=== PATIENT | female | born 1985 | race Caucasian/White ===

== ENCOUNTER → 2016-06-21 | Outpatient (CLI) | payer BC | END | disposition home or self-care (01) | LOC: C.PAPS 10:48 | PROVIDERS: ATTEND Obstetrics & Gynecology | DX: Z01.419 Encounter for gynecological examination (general) (routine) without abnormal findings (principal) ==

== ENCOUNTER → 2017-06-26 | Outpatient (CLI) | payer BC | END | disposition home or self-care (01) | LOC: C.PAPS 09:14 | PROVIDERS: ATTEND Obstetrics & Gynecology | DX: Z01.419 Encounter for gynecological examination (general) (routine) without abnormal findings (principal) ==

== ENCOUNTER 2022-05-08 00:34 | Inpatient (IN) ==
--- NOTE | 2022-05-08 01:19 | History & Physical Report ---
Date of Service May 08, 2022 Assessment & Plan (1) 40 weeks gestation of : (2) PROM with onset of labor within 24 hours of rupture: (3) Need for MMR vaccine: Plan Admit, iv, labs. fhts categ 1. epidural when desires, reviewed possible need for pit. will need mmr pp. pt agreeable. given bps, will check lfts and creat. monitor. History of Present Illness Chief Complaint: leaking fluid Primary Care Provider: Keisha Rosas 36yo at 40+wks ega with prom clear fluid and onset on ctx. On arrival to L&D gross srom noted and cx 2cm /80% per nurse. Patient with painful ctx, requests epidural. No vb. No aviles or visual change. No ruq pain. PNC c/b 1. ama 2. needs mmr pp PNL rhpos, ri, gbs neg OBH: g1 GYNH: nl paps, no stds Allergies Allergy/AdvReac Type Severity Reaction Status Date / Time Penicillins Allergy Severe Anaphylaxis Verified 05/03/22 15:01 Home Medications Medication Instructions Recorded Confirmed Type Saccharomyces boulardii 250 mg 250 mg PO DAILY 06/16/19 05/08/22 History capsule fluticasone propionate 50 1 sprays intranasal DAILY 06/16/19 05/08/22 History mcg/actuation nasal spray,suspension montelukast 10 mg tablet 10 mg PO DAILY 06/16/19 05/08/22 History budesonide 180 mcg/actuation 1 inh inhalation DAILY 08/20/20 05/08/22 History breath activated powder inhaler (Pulmicort Flexhaler) albuterol sulfate PO PRN 10/03/21 05/03/22 History calcium carbonate [Calcium 600] PO 10/03/21 05/03/22 History cetirizine [Zyrtec] PO 10/03/21 05/03/22 History elderberry fruit PO 10/03/21 05/03/22 History ipratropium bromide [Atrovent HFA] inhalation 10/03/21 05/03/22 History ketotifen fumarate [Zaditor] ophthalmic (eye) 10/03/21 05/03/22 History lifitegrast [Xiidra] ophthalmic (eye) 10/03/21 05/03/22 History prenat.vits,filemon,[id number] 1 tab PO DAILY 10/03/21 05/08/22 History doxylamine succinate [Unisom PO 02/10/22 05/03/22 History (doxylamine)] famotidine [Pepcid] PO 02/10/22 05/03/22 History loperamide [Imodium] PO 02/10/22 05/03/22 History hydrocortisone 2.5 % topical 1 applic topical BID #28.35 grams 02/17/22 05/08/22 Rx ointment doxylamine 20 mg-pyridoxine 20 mg 1 tab PO BID #60 tabs 03/13/22 05/08/22 Rx tablet,immediate and delayed release (Bonjesta) albuterol sulfate 0.63 mg/3 mL 0.63 mg inhalation Q4H PRN Wheezing 05/08/22 05/08/22 History solution for nebulization Patient History Medical History Asthma History of chicken pox IBS (irritable bowel syndrome) Surgical History H/O colonoscopy H/O laparoscopy H/O wisdom tooth extraction S/P LASIK surgery Family History Grandmother (Maternal) Diabetes Mother Asthma Thyroid disease Vulvodynia Denies family history of Ovarian cancer Breast cancer Colorectal cancer Social History Smoking Status: Never smoker Hx Alcohol Use: No Hx Substance Use: No Preferred Language: Armenian Coffee Farmer Required: No Beliefs That Will Affect Care: None marital status: marital status details: Blake Alfaro (38) [phone] Current Living Situation: Spouse Current Living Situation Comment: lives with spouse, dogs current occupational status: employed current occupation: [employer] Professional Other Information That Helps Us Care for You: No Feels Safe at Home: Yes Safety Concerns: Feels Safe At This Time Dental Care, Regularly: Yes Physical Activity Frequency Comment: Exerciese regularly. Seatbelt Use: always Sunscreen Use: Yes Assistive Devices: None Review of Systems as per Subjective / HPI Physical Exam Constitutional: WD/WN, vitals as above Respiratory: normal respiratory effort, lungs clear to auscultation Cardiovascular: Rate/Rhythm: regular rate and regular rhythm Gastrointestinal (Abdomen): soft gravid nt efw 7-8# Musculoskeletal: no edema nontender calves Neurologic: grossly normal Psychiatric: A+Ox3, euthymic affect Genitourinary: Manual OB Exam: + cervical dilation 2 cm and + cervical effacement (per nurse) 80% OB Exam Monitor Tracing: + external FHT monitor used, + external uterine monitor used (q2-3), + category I and + normal FHT variability Gross srom Results & Data ([facility]) Vital Signs (Past 12 Hours) Vital Signs Temp Pulse Resp BP 05/08/22 00:55 98.2 F 92 H 18 157/94 H 05/08/22 01:12 91 H 129/84 05/08/22 01:04 91 H 155/86 H 05/08/22 01:01 86 176/83 H 05/08/22 00:49 98.2 F 92 H 18 157/94 H Coding Level of Care Code None Diagnoses 40 weeks gestation of Z3A.40 PROM with onset of labor within 24 hours of rupture O42.00 Need for MMR vaccine Z23
[2022-05-08] MEDS ORDERED: OXYTOCIN 30 UNITS/500 ML BAG IV PRN ×3 (01:22→20:38)
[2022-05-08] MEDS ORDERED: LIDOCAINE 1% LOCAL 20 ML VIAL INFIL PRN (01:22)
[2022-05-08] MEDS: LACTATED RINGER'S 1,000 ML IV PRN ×6 (01:40→22:31)
[2022-05-08] MEDS ORDERED: ePHEDrine sulfate 50 MG/ML AMP ONE (01:46)
[2022-05-08] MEDS ORDERED: BUPIVACAINE 0.25% 30 ML VIAL ONE (01:47)
[2022-05-08] MEDS ORDERED: fentaNYL 2MCG/ML ROPIVACAINE 1.25MG/ML 100 ML BAG EPI ONE (01:47)
[2022-05-08] MEDS ORDERED: SODIUM CHLORIDE 0.9% INJ 10 ML VIAL ONE (01:47)
[2022-05-08] MEDS ORDERED: fentaNYL citrate 100 MCG/2 ML VIAL ONE (01:47)
[2022-05-08] MEDS ORDERED: LIDOCAINE 2%/EPINEPHRINE 1:200,000 20 ML SDV ONE (01:47)
[2022-05-08 01:58] LABS: Hematocrit (blood only) 34.7 % (37.0-47.0); Hemoglobin 11.7 g/dl (12.0-16.0); Mean Corpuscular Hemoglobin 28.6 pg (25.0-34.0); Mean Corpuscular Hgb Conc 33.7 g/dL (32.0-36.0); Mean Corpuscular Volume 84.8 fL (80.0-100.0); Platelet Count 249 K/uL (130-400); RDW Coefficient of Variation 15.5 % (11.5-14.5); RDW Standard Deviation 47.5 fL (36.4-46.3); Red Blood Count 4.09 M/uL (4.20-5.40); White Blood Count 14.33 K/ul (4.8-10.8)
[2022-05-08 02:07] LABS: Albumin Globulin Ratio 1.1 (0.9-2); Albumin Level 3.4 gm/dl (3.4-5.0); BUN Creatinine Ratio 12.8 (10-20); Bilirubin,Total 0.3 mg/dl (0.2-1.0); Calcium 9.7 mg/dl (8.5-10.1); Creatinine Clr Calc Pharmacy 130.9 ml/min; Est GFR (African American) 113.4 ml/min; Est GFR (Non-African American) 97.8 ml/min; Potassium 4.1 mmol/L (3.5-5.1); Total Protein 6.4 gm/dl (6.0-8.3)
[2022-05-08] MEDS ORDERED: ePHEDrine sulfate 50 MG/ML AMP IV PRN (02:33)
[2022-05-08] MEDS ORDERED: NALOXONE HCL 1 MG in SODIUM CHLORIDE 0.9% 1000ML 1,000 ML IV PRN (02:33)
[2022-05-08] MEDS ORDERED: NALOXONE HCL 0.4 MG/1 ML VIAL/CARP IV PRN (02:33)
[2022-05-08] MEDS ORDERED: diphenhydrAMINE 50 MG/ML VIAL IV PRN (02:33)
[2022-05-08] MEDS ORDERED: NALBUPHINE HCL INJ 10 MG/ML AMP IV PRN (02:33)
--- NOTE | 2022-05-08 02:33 | Anesthesiology Consultation ---
Date of Service May 08, 2022 Assessment & Plan ASA ASA2 Proposed Anesthesia Anesthesia Type: Labor Epidural Risk / Benefits Reviewed With: PT / POA / Parent / Guardian, Accepts Plan and Informed Consent Obtained History Height/Weight Height: 5 ft 8 in Weight: 112.037 kg Allergies Allergy/AdvReac Type Severity Reaction Status Date / Time Penicillins Allergy Severe Anaphylaxis Verified 05/03/22 15:01 Medications Home Medications Medication Instructions Recorded Confirmed Last Taken Saccharomyces boulardii 250 mg 250 mg PO DAILY 06/16/19 05/08/22 05/07/22 capsule fluticasone propionate 50 1 sprays intranasal DAILY 06/16/19 05/08/22 05/07/22 mcg/actuation nasal spray,suspension montelukast 10 mg tablet 10 mg PO DAILY 06/16/19 05/08/22 05/07/22 budesonide 180 mcg/actuation 1 inh inhalation DAILY 08/20/20 05/08/22 Unknown breath activated powder inhaler (Pulmicort Flexhaler) prenat.vits,filemon,[id number] 1 tab PO DAILY 10/03/21 05/08/22 05/07/22 hydrocortisone 2.5 % topical 1 applic topical BID #28.35 grams 02/17/22 05/08/22 05/07/22 ointment doxylamine 20 mg-pyridoxine 20 mg 1 tab PO BID #60 tabs 03/13/22 05/08/22 05/07/22 tablet,immediate and delayed release (Bonjesta) albuterol sulfate 0.63 mg/3 mL 0.63 mg inhalation Q4H PRN Wheezing 05/08/22 05/08/22 05/07/22 solution for nebulization cetirizine 10 mg tablet (Zyrtec) 10 mg PO DAILY 05/08/22 05/08/22 05/07/22 doxylamine succinate 25 mg tablet 25 mg PO HS PRN Sleep 05/08/22 05/08/22 05/07/22 famotidine 40 mg tablet (Pepcid) 40 mg PO DAILY 05/08/22 05/08/22 05/07/22 ipratropium bromide 17 1 puff inhalation QID PRN Wheezing 05/08/22 05/08/22 Unknown mcg/actuation HFA aerosol inhaler ketotifen fumarate 0.025 % (0.035 1 drp ophthalmic (eye) BID PRN 05/08/22 Unknown %) eye drops Itching lifitegrast 5 % eye drops in a 1 drp ophthalmic (eye) PRN Itching 05/08/22 Unknown dropperette loperamide 2 mg capsule 2 mg PO PRN Diarrhea 05/08/22 05/07/22 Active Medications Generic Name Dose Route Start Last Admin Trade Name Freq PRN Reason Stop Dose Admin Lactated Ringer's 1,000 mls @ 125 mls/hr 05/08/22 01:22 05/08/22 02:46 Lr IV 05/10/22 01:21 125 mls/hr .Q8H PRN Administration L&D Protocol Protocol Past Medical History Medical History Asthma History of chicken pox IBS (irritable bowel syndrome) Exercise / Class Metabolic Activity II 4-5 Yardwork/Stairs/Walk up hill Past Family History Family History Grandmother (Maternal) Diabetes Mother Asthma Thyroid disease Vulvodynia Denies family history of Ovarian cancer Breast cancer Colorectal cancer Past Surgical History Surgical History H/O colonoscopy H/O laparoscopy H/O wisdom tooth extraction S/P LASIK surgery Past Anesthesia History No Hx of Anesthesia Complications and No Family Hx of Anesthesia Complications History of PONV No Hx of PONV and No Hx of Motion Sickness Social History Smoking Status: Never smoker Hx Alcohol Use: No Hx Substance Use: No substance use type: does not use Review of Systems denies fever/cough/ colds/ chest pain/ SOB/ EDUARDO denies EDUARDO Physical Exam Vital Signs Last Vital Signs Temp 36.8 C 05/08/22 00:55 Pulse 85 05/08/22 03:04 Resp 18 05/08/22 00:55 BP 144/73 H 05/08/22 03:04 Pulse Ox 99 05/08/22 03:03 ENMT Mouth: no TMJ abnormality and no dentition abnormality Thyromental Distance: > or= 3.5 Finger Breadths Mallampati Class: II Neck neck extension not limited Respiratory normal respiratory effort; no respiratory distress Auscultation: lungs clear to auscultation bilaterally Cardiovascular Rate/Rhythm: regular rate and regular rhythm Neurologic moves all extremities Psychiatric Orientation: alert and oriented x 3 Testing Laboratory Results 05/08/22 01:33 05/08/22 01:33 Blood Type O Positive 05/08/22 01:33 Antibody Screen NEGATIVE 05/08/22 01:33
[2022-05-08] MEDS: ONDANSETRON INJ 2 MG/ML 2 ML VIAL IV PRN ×2 (03:21→13:31)
--- NOTE | 2022-05-08 07:33 | Labor Progress Brief Note ---
Date of Service May 08, 2022 Subjective pt feeling some pressure. Assessment & Plan (1) 40 weeks gestation of : (2) PROM with onset of labor within 24 hours of rupture: Plan will likely begin 2nd stage soon. just saw pt temp. will d/w oncoming provider, may have to trt as presumed chorio. no maternal or tachycardia noted. or new tenderness although pt with epidural. Admission and Anticipated Discharge Date Admission Date: May 08, 2022 Physical Exam Constitutional: WD/WN, vitals as above Genitourinary: Manual OB Exam: + cervical dilation (rim), + cervical effacement 100% and + station 0 OB Exam Monitor Tracing: + external FHT monitor used, + external uterine monitor used (q2), + category I and + normal FHT variability Results & Data ([facility]) Vital Signs (Past 12 Hours) Vital Signs Temp Pulse Resp BP Pulse Ox 05/08/22 00:55 98.2 F 92 H 18 157/94 H 05/08/22 07:28 94 H 99 05/08/22 07:23 97 H 99 05/08/22 07:19 90 138/76 05/08/22 07:01 16 05/08/22 07:01 100.8 F H 16 05/08/22 07:17 84 98 05/08/22 07:13 90 99 05/08/22 07:08 83 99 05/08/22 07:05 93 H 139/84 05/08/22 07:03 90 100 05/08/22 06:58 89 99 05/08/22 06:52 87 98 05/08/22 06:50 85 134/72 05/08/22 06:48 92 H 99 05/08/22 06:43 84 98 05/08/22 06:38 84 100 05/08/22 06:35 82 120/78 05/08/22 06:33 86 98 05/08/22 06:28 83 99 05/08/22 06:23 86 99 05/08/22 06:20 83 135/78 05/08/22 06:18 85 99 05/08/22 06:13 83 98 05/08/22 06:08 85 98 05/08/22 06:05 81 135/75 05/08/22 06:03 88 97 05/08/22 05:58 81 99 05/08/22 05:53 85 05/08/22 05:53 88 147/76 H 100 05/08/22 05:51 83 133/100 05/08/22 05:48 82 97 05/08/22 05:43 84 99 05/08/22 05:38 84 100 05/08/22 05:34 76 139/70 05/08/22 05:33 82 99 05/08/22 05:28 90 99 05/08/22 05:10 98.6 F 05/08/22 05:23 108 H 99 05/08/22 05:21 88 124/81 05/08/22 05:18 78 99 05/08/22 05:13 97 H 97 05/08/22 05:08 88 98 05/08/22 05:05 80 145/74 H 05/08/22 05:03 85 98 05/08/22 04:58 94 H 98 05/08/22 04:53 82 97 05/08/22 04:49 87 140/71 05/08/22 04:48 84 98 05/08/22 04:43 108 H 99 05/08/22 04:38 78 98 05/08/22 04:35 85 146/82 H 05/08/22 04:33 83 98 05/08/22 04:28 98 H 98 05/08/22 04:23 80 100 05/08/22 04:20 77 144/77 H 05/08/22 04:18 75 98 05/08/22 04:13 117 H 98 05/08/22 04:08 79 98 05/08/22 04:05 78 141/72 H 05/08/22 04:03 78 98 05/08/22 03:58 93 H 98 05/08/22 03:53 75 100 05/08/22 03:49 80 142/73 H 05/08/22 03:48 91 H 99 05/08/22 03:43 80 98 05/08/22 03:38 80 99 05/08/22 03:34 90 133/81 05/08/22 03:33 83 99 05/08/22 03:28 78 97 05/08/22 03:05 97.5 F L 05/08/22 03:23 84 99 05/08/22 03:18 89 99 05/08/22 03:17 82 138/74 05/08/22 03:13 82 99 05/08/22 03:11 90 135/73 05/08/22 03:08 92 H 99 05/08/22 03:04 85 144/73 H 05/08/22 03:03 87 99 05/08/22 03:02 84 130/68 05/08/22 03:00 78 143/74 H 05/08/22 02:58 75 05/08/22 02:58 79 142/76 H 96 05/08/22 02:56 75 142/74 H 05/08/22 02:53 103 H 100 05/08/22 02:48 109 H 99 05/08/22 01:31 97 H 139/81 05/08/22 01:22 100 H 140/84 05/08/22 01:12 91 H 129/84 05/08/22 01:04 91 H 155/86 H 05/08/22 01:01 86 176/83 H 05/08/22 00:49 98.2 F 92 H 18 157/94 H Coding Level of Care Code None Diagnoses 40 weeks gestation of Z3A.40 PROM with onset of labor within 24 hours of rupture O42.00
--- NOTE | 2022-05-08 09:17 | Labor Progress Brief Note ---
Date of Service May 08, 2022 Subjective Reason For Note: Routine Evaluation contractions every 5 minutes. recently straight cathed for only 10cc's urine. IV bolus initiated as a result and now ctns are spaced out. FHT tracing category 1 cervix exam- lip on right side of cervix still present. vertex still at - 2station will start augmentation of her contractions to get back to an adequate pattern. Assessment & Plan Admission and Anticipated Discharge Date Admission Date: May 08, 2022 Results & Data ([facility]) Vital Signs (Past 12 Hours) Vital Signs Temp Pulse Resp BP Pulse Ox 05/08/22 00:55 98.2 F 92 H 18 157/94 H 05/08/22 09:13 86 98 05/08/22 09:08 88 99 05/08/22 09:05 86 160/78 H 05/08/22 09:03 91 H 99 05/08/22 08:58 95 H 100 05/08/22 08:53 86 100 05/08/22 08:49 88 144/81 H 05/08/22 08:48 90 99 05/08/22 08:43 92 H 98 05/08/22 08:38 87 99 05/08/22 08:34 93 H 160/97 H 05/08/22 08:33 89 98 05/08/22 08:28 92 H 98 05/08/22 08:00 16 05/08/22 08:00 16 05/08/22 08:23 95 H 98 05/08/22 08:21 90 159/86 H 05/08/22 07:00 16 05/08/22 07:00 98.2 F 16 05/08/22 08:18 93 H 98 05/08/22 08:13 87 99 05/08/22 08:08 95 H 99 05/08/22 08:04 91 H 152/79 H 05/08/22 08:03 90 99 05/08/22 07:58 92 H 98 05/08/22 07:53 94 H 98 05/08/22 07:51 91 H 153/78 H 05/08/22 07:49 86 164/88 H 05/08/22 07:48 92 H 100 05/08/22 07:43 97 H 99 05/08/22 07:38 91 H 99 05/08/22 07:35 97 H 140/94 05/08/22 07:33 101 H 100 05/08/22 07:28 94 H 99 05/08/22 07:23 97 H 99 05/08/22 07:19 90 138/76 05/08/22 07:01 16 05/08/22 07:17 84 98 05/08/22 07:13 90 99 05/08/22 07:08 83 99 05/08/22 07:05 93 H 139/84 05/08/22 07:03 90 100 05/08/22 06:58 89 99 05/08/22 06:52 87 98 05/08/22 06:50 85 134/72 05/08/22 06:48 92 H 99 05/08/22 06:43 84 98 05/08/22 06:38 84 100 05/08/22 06:35 82 120/78 05/08/22 06:33 86 98 05/08/22 06:28 83 99 05/08/22 06:23 86 99 05/08/22 06:20 83 135/78 05/08/22 06:18 85 99 05/08/22 06:13 83 98 05/08/22 06:08 85 98 05/08/22 06:05 81 135/75 05/08/22 06:03 88 97 05/08/22 05:58 81 99 05/08/22 05:53 85 05/08/22 05:53 88 147/76 H 100 05/08/22 05:51 83 133/100 05/08/22 05:48 82 97 05/08/22 05:43 84 99 05/08/22 05:38 84 100 05/08/22 05:34 76 139/70 05/08/22 05:33 82 99 05/08/22 05:28 90 99 05/08/22 05:10 98.6 F 05/08/22 05:23 108 H 99 05/08/22 05:21 88 124/81 05/08/22 05:18 78 99 05/08/22 05:13 97 H 97 05/08/22 05:08 88 98 05/08/22 05:05 80 145/74 H 05/08/22 05:03 85 98 05/08/22 04:58 94 H 98 05/08/22 04:53 82 97 05/08/22 04:49 87 140/71 05/08/22 04:48 84 98 05/08/22 04:43 108 H 99 05/08/22 04:38 78 98 05/08/22 04:35 85 146/82 H 05/08/22 04:33 83 98 05/08/22 04:28 98 H 98 05/08/22 04:23 80 100 05/08/22 04:20 77 144/77 H 05/08/22 04:18 75 98 05/08/22 04:13 117 H 98 05/08/22 04:08 79 98 05/08/22 04:05 78 141/72 H 05/08/22 04:03 78 98 05/08/22 03:58 93 H 98 05/08/22 03:53 75 100 05/08/22 03:49 80 142/73 H 05/08/22 03:48 91 H 99 05/08/22 03:43 80 98 05/08/22 03:38 80 99 05/08/22 03:34 90 133/81 05/08/22 03:33 83 99 05/08/22 03:28 78 97 05/08/22 03:05 97.5 F L 05/08/22 03:23 84 99 05/08/22 03:18 89 99 05/08/22 03:17 82 138/74 05/08/22 03:13 82 99 05/08/22 03:11 90 135/73 05/08/22 03:08 92 H 99 05/08/22 03:04 85 144/73 H 05/08/22 03:03 87 99 05/08/22 03:02 84 130/68 05/08/22 03:00 78 143/74 H 05/08/22 02:58 75 05/08/22 02:58 79 142/76 H 96 05/08/22 02:56 75 142/74 H 05/08/22 02:53 103 H 100 05/08/22 02:48 109 H 99 05/08/22 01:31 97 H 139/81 05/08/22 01:22 100 H 140/84 05/08/22 01:12 91 H 129/84 05/08/22 01:04 91 H 155/86 H 05/08/22 01:01 86 176/83 H 05/08/22 00:49 98.2 F 92 H 18 157/94 H Coding Level of Care Code None Diagnoses
[2022-05-08] MEDS: fentaNYL 2MCG/ML ROPIVACAINE 1.25MG/ML 100 ML BAG EPI PRN ×3 (09:24→19:34)
[2022-05-08] MEDS ORDERED: FAMOTIDINE 20 MG in SYRINGE 3 ML IV ONE (18:15)
[2022-05-08] MEDS ORDERED: CLINDAMYCIN/D5W 900 MG/50 ML BAG IV ONE (19:55)
[2022-05-08] MEDS: miSOPROStoL 200 MCG TAB PR ONE ×2 (20:20→20:22)
--- NOTE | 2022-05-08 20:21 | Anesthesia Procedure Note ---
Date of Service May 08, 2022 Anesthesia Post Epidural Note Vital Signs Vital Signs: Temp Pulse Resp BP Pulse Ox 36.8 C 101 H 18 140/100 89 L 05/08/22 19:00 05/08/22 20:09 05/08/22 19:00 05/08/22 20:09 05/08/22 20:06 Pain Intensity Bilateral Abdomen: Pain Intensity: 5 Notes Mental Status: alert / awake / arousable and participated in evaluation Nausea / Vomiting: adequately controlled Pain: adequately controlled Airway Patency, RR, SpO2: stable & adequate BP & HR: stable & adequate Hydration State: stable & adequate Neuraxial Anesthesia: was administered and sensory block is resolving Anesthetic Complications: no major complications apparent and Pt Satisfied with anesthetic care Epidural: Removed without complications and With tip intact
[2022-05-08] MEDS ORDERED: DIPHTHERIA/TETANUS/PERTUSSIS 0.5mL SYR/VIAL (Age 7+yrs) IM ONE (20:38)
[2022-05-08] MEDS ORDERED: bisacodyL 10 MG SUPP PR PRN (20:38)
[2022-05-08] MEDS ORDERED: HYDROCORTISONE ACETATE 25 MG SUPP PR PRN (20:38)
[2022-05-08] MEDS ORDERED: BENZOCAINE 20% AER SPR 82.5 GM CAN EXT PRN (20:38)
[2022-05-08] MEDS ORDERED: oxyCODONE/ACETAMINOPHEN 5mg/325mg TAB PO PRN (20:38)
[2022-05-08] MEDS ORDERED: IPRATROPIUM BROMIDE HFA INHALER INH PRN (20:44)
[2022-05-08] MEDS ORDERED: KETOTIFEN FUMARATE OP PRN (20:44)
[2022-05-08] MEDS ORDERED: NON-FORMULARY MEDICATION (Albuterol Sulfate 0.63 mg/3 mL Solution For Nebulization) INH PRN (20:44)
[2022-05-08] MEDS: ACETAMINOPHEN 325 MG TAB PO PRN (21:00)
--- NOTE | 2022-05-08 21:55 | Delivery Summary ---
Vaginal Delivery Summary Date of Service May 08, 2022 Vaginal Delivery Summary VAVD and 2nd Degree LAC Patient is a 36-year-old 1 P0 female EDC of 05/05/2022 who presented with spontaneous rupture membranes for clear fluid. She progressed in labor spontaneously to an anterior lip with effective epidural analgesia. The vertex was still at -2 station and contractions became sporadic. Pitocin augmentation was begun and it took several hours until she had an adequate contraction pattern again. The vertex then slowly descended until she is able to feel rectal pressure. She then began to push and over 3 hours was able to bring the vertex to +2 station with molding. Because of maternal exhaustion and reduced maternal pushing effort, vacuum-assisted delivery was suggested and accepted by the patient and her . After her bladder was emptied for small amount of urine, the vacuum was applied as she was pushing. On the next contraction the vacuum was applied and brought the head to . She then was able to push the infant to the level of the shoulders over a very small midline episiotomy. There was a very tight nuchal cord and it took some time to clamp and cut the cord. With hyperflexion of the hips, the shoulders then delivered easily. The rest of the infant also followed without difficulty. The had no tone or respiratory effort and was taken to the baby bed for further resuscitation. Please see the nursery records for this part of the procedure. Is a small abrasion on the baby's right shoulder where during the clamping of the cord the skin was caught as well. It was superficial and not bleeding. After cord blood was was obtained, the placenta was expressed intact with a three-vessel cord. bleeding was controlled with dilute Pitocin and fundal massage. Bleeding continued to be brisk and rectal Cytotec 1000 mg was administered. Bleeding had slowed but still was more than acceptable. Exploration of the uterus revealed some clot in the lower uterine segment but no retained tissue. At this point bleeding began to subside to small amount. A second-degree appease and laceration was repaired with 3-0 chromic in the usual fashion. The was taken to the nursery for further observation and evaluation by the pediatric hospitalist and nursery staff. Mother was in stable condition after delivery. Estimated blood loss was 600 cc. [facility] Vaginal Delivery Charge Delivery Type Details: VAVD and 2nd Degree LAC
[2022-05-08] MEDS: DOCUSATE SODIUM 100 MG CAP PO SCH (22:02)
[2022-05-08] MEDS ORDERED: SODIUM CHLORIDE 0.9% 250 ML IV PRN ×3 (22:27→23:24)
[2022-05-08] MEDS ORDERED: diphenhydrAMINE 50 MG/ML VIAL IV STA (22:49)
--- NOTE | 2022-05-08 22:55 | Communication Note ---
Date of Service: May 08, 2022 patient had syncopal episode after walking to the bathroom and was then transferred back into bed. patient still pale and O2 sat was 89% she had a substantial hemorrhage first estimated to be at least 600cc but I suspect that the blood was most likely at least 800cc. will type and cross PRBC's pending stat H&H.
[2022-05-08] MEDS: IBUPROFEN 600 MG TAB PO PRN (23:01)
[2022-05-08 23:07] LABS: Hematocrit (blood only) 25.5 % (37.0-47.0); Hemoglobin 8.6 g/dl (12.0-16.0)
[2022-05-09] MEDS: ACETAMINOPHEN 325 MG TAB PO PRN ×2 (02:52→08:35)
[2022-05-09] MEDS: IBUPROFEN 600 MG TAB PO PRN ×3 (05:34→15:43)
--- NOTE | 2022-05-09 06:23 | Obstetrical Progress Note ---
Date of Service <Irish Gutierrez MD - Last Filed: 05/09/22 07:32> May 09, 2022 Assessment & Plan <Irish Gutierrez MD - Last Filed: 05/09/22 07:32> (1) Encounter for care and examination after delivery: <Vira Nunez MD, FACOG - Last Filed: 05/09/22 07:20> (1) Encounter for care and examination after delivery: stable following 800cc hemorrhage will recheck H&H at 0700 this am D/C hernandez if able to ambulate <Vira Nunez MD, FACOG - Last Filed: 05/09/22 07:20> Ambulation: limited ambulation Voiding: hernandez catheter in place Lochia:: Moderate Feeding Type:: breast feeding second unit of PRBC's finished at 0500. feeling better Review of Systems All systems reviewed & are unremarkable except as noted in HPI & below <Vira Nunez MD, FACOG - Last Filed: 05/09/22 07:20> Constitutional WD/WN, vitals as above Psychiatric A+Ox3, euthymic affect Genitourinary OB Exam Abdomen: + fundal height Fundus: + firm and + relation to umbilicus (at U) Results & Data ([facility]) <Irish Gutierrez MD - Last Filed: 05/09/22 07:32> Vital Signs (Past 12 Hours) Vital Signs Temp Pulse Resp BP Pulse Ox O2 Del Method 05/09/22 05:00 36.5 C 82 18 137/76 98 05/09/22 04:00 36.8 C 82 20 127/76 98 05/09/22 03:30 36.8 C 79 16 129/80 97 05/09/22 03:15 36.8 C 83 16 129/83 97 05/09/22 02:51 36.8 C 88 16 119/71 95 05/09/22 01:55 36.8 C 99 H 18 141/84 H 96 05/09/22 00:55 36.9 C 93 H 16 115/53 L 95 05/09/22 00:25 36.8 C 93 H 16 143/75 H 97 05/09/22 00:10 36.9 C 89 16 140/75 96 05/08/22 23:00 Room Air 05/08/22 23:48 36.8 C 88 16 134/72 99 05/08/22 23:00 16 05/08/22 22:10 36.7 C 18 05/08/22 21:10 18 05/08/22 20:55 18 05/08/22 20:25 18 05/08/22 21:40 16 05/08/22 20:40 18 05/08/22 20:10 20 05/09/22 05:21 99 05/09/22 05:21 86 05/09/22 05:15 99 05/09/22 05:15 96 H 05/09/22 05:10 97 05/09/22 05:10 84 05/09/22 05:05 98 05/09/22 05:05 94 H 05/09/22 05:03 82 05/09/22 05:03 137/76 05/09/22 05:00 98 05/09/22 05:00 81 05/09/22 04:55 96 05/09/22 04:55 81 05/09/22 04:50 94 05/09/22 04:50 74 05/09/22 04:48 94 05/09/22 04:48 72 05/09/22 04:45 92 05/09/22 04:45 78 05/09/22 04:40 92 05/09/22 04:40 75 05/09/22 04:36 94 05/09/22 04:36 78 05/09/22 04:35 96 05/09/22 04:35 80 05/09/22 04:30 94 05/09/22 04:30 77 05/09/22 04:30 94 05/09/22 04:30 75 05/09/22 04:25 95 05/09/22 04:25 76 05/09/22 04:22 94 05/09/22 04:22 73 05/09/22 04:20 94 05/09/22 04:20 73 05/09/22 04:15 96 05/09/22 04:16 94 05/09/22 04:15 80 05/09/22 04:16 76 05/09/22 04:10 98 05/09/22 04:10 81 05/09/22 04:05 97 05/09/22 04:05 94 H 05/09/22 04:02 83 05/09/22 04:02 127/76 05/09/22 04:00 96 05/09/22 04:00 75 05/09/22 03:55 95 05/09/22 03:55 77 05/09/22 03:50 97 05/09/22 03:50 79 05/09/22 03:45 97 05/09/22 03:45 77 05/09/22 03:40 96 05/09/22 03:40 88 05/09/22 03:35 95 05/09/22 03:35 94 H 05/09/22 03:30 97 05/09/22 03:30 79 05/09/22 03:30 129/80 05/09/22 03:25 96 05/09/22 03:25 77 05/09/22 03:20 96 05/09/22 03:20 79 05/09/22 03:15 97 05/09/22 03:15 83 05/09/22 03:16 83 05/09/22 03:16 129/83 05/09/22 03:10 97 05/09/22 03:10 87 05/09/22 03:05 97 05/09/22 03:05 87 05/09/22 03:00 97 05/09/22 03:00 81 05/09/22 02:55 97 05/09/22 02:55 82 05/09/22 02:52 81 05/09/22 02:52 119/71 05/09/22 02:50 97 05/09/22 02:50 95 H 05/09/22 02:46 94 05/09/22 02:46 79 05/09/22 02:45 95 05/09/22 02:45 81 05/09/22 02:40 96 05/09/22 02:40 80 05/09/22 02:35 96 05/09/22 02:35 77 05/09/22 02:30 96 05/09/22 02:30 77 05/09/22 02:25 98 05/09/22 02:25 85 05/09/22 02:20 97 05/09/22 02:20 90 05/09/22 02:15 97 05/09/22 02:15 86 05/09/22 02:10 96 05/09/22 02:10 86 05/09/22 02:05 97 05/09/22 02:05 104 H 05/09/22 02:00 98 05/09/22 02:00 96 H 05/09/22 01:57 99 H 05/09/22 01:57 141/84 H 05/09/22 01:55 96 05/09/22 01:55 84 05/09/22 01:50 98 05/09/22 01:50 88 05/09/22 01:45 97 05/09/22 01:45 105 H 05/09/22 01:40 95 05/09/22 01:40 88 05/09/22 01:38 93 05/09/22 01:38 87 05/09/22 01:35 94 05/09/22 01:35 87 05/09/22 01:33 94 05/09/22 01:33 83 05/09/22 01:30 94 05/09/22 01:30 89 05/09/22 01:27 94 05/09/22 01:27 83 05/09/22 01:25 94 05/09/22 01:25 101 H 05/09/22 01:21 94 05/09/22 01:21 87 05/09/22 01:20 95 05/09/22 01:20 88 05/09/22 01:15 95 05/09/22 01:15 105 H 05/09/22 01:10 95 05/09/22 01:10 90 05/09/22 01:06 96 05/09/22 01:06 84 05/09/22 01:00 91 H 95 05/09/22 00:57 93 H 115/53 L 05/09/22 00:55 85 95 05/09/22 00:54 101 H 94 05/09/22 00:51 92 H 97 05/09/22 00:49 85 94 05/09/22 00:45 82 95 05/09/22 00:40 79 95 05/09/22 00:35 84 96 05/09/22 00:30 97 05/09/22 00:30 92 H 05/09/22 00:30 103 H 91 05/09/22 00:26 96 H 143/75 H 05/09/22 00:25 89 97 05/09/22 00:21 93 H 94 05/09/22 00:20 93 H 97 05/09/22 00:16 95 H 95 05/09/22 00:11 88 140/75 95 05/09/22 00:06 85 96 05/09/22 00:00 88 97 05/08/22 23:56 96 05/08/22 23:56 92 H 05/08/22 23:51 97 05/08/22 23:51 91 H 05/08/22 23:46 90 05/08/22 23:46 134/72 05/08/22 23:46 99 05/08/22 23:46 96 H 05/08/22 23:41 100 05/08/22 23:41 88 05/08/22 23:36 98 05/08/22 23:36 88 05/08/22 23:36 136/78 05/08/22 23:31 100 05/08/22 23:31 96 H 05/08/22 23:25 99 05/08/22 23:25 93 H 05/08/22 23:26 88 05/08/22 23:26 132/73 05/08/22 23:21 94 H 99 05/08/22 23:16 96 H 146/70 H 05/08/22 23:15 97 H 99 05/08/22 23:11 92 H 98 05/08/22 23:06 92 H 137/78 98 05/08/22 23:00 89 99 05/08/22 22:56 107 H 100 05/08/22 22:55 101 H 90 05/08/22 22:51 94 H 100 05/08/22 22:46 89 05/08/22 22:46 90 133/71 99 05/08/22 22:41 93 H 100 05/08/22 22:36 95 H 05/08/22 22:36 96 H 146/74 H 99 05/08/22 22:31 92 H 95 05/08/22 22:25 86 143/70 H 05/08/22 22:09 141 H 134/72 05/08/22 21:54 102 H 133/85 05/08/22 21:47 93 H 134/60 05/08/22 21:40 120 H 173/85 H 05/08/22 21:09 107 H 134/73 05/08/22 20:54 118 H 128/60 05/08/22 20:39 118 H 142/61 H 05/08/22 20:25 132/72 05/08/22 20:09 101 H 140/100 05/08/22 20:06 96 H 89 L 05/08/22 20:05 95 H 99 05/08/22 20:00 91 H 95 05/08/22 19:55 87 100 05/08/22 19:50 88 95 05/08/22 19:49 85 89 L 05/08/22 19:45 82 96 05/08/22 19:42 91 H 90 05/08/22 19:40 88 92 05/08/22 19:35 88 92 05/08/22 19:33 98 H 91 05/08/22 19:30 120 H 91 05/08/22 19:27 111 H 86 L 05/08/22 19:25 129 H 91 05/08/22 19:20 89 92 05/08/22 19:15 101 H 96 05/08/22 19:10 97 H 95 05/08/22 19:07 82 153/75 H 05/08/22 19:06 102 H 85 L 05/08/22 19:05 87 93 05/08/22 19:00 36.8 C 94 H 18 97 05/08/22 18:58 112 H 86 L 05/08/22 18:55 82 94 05/08/22 18:53 104 H 90 05/08/22 18:50 80 96 05/08/22 18:47 79 154/74 H 05/08/22 18:45 125 H 96 05/08/22 18:40 113 H 98 05/08/22 18:35 102 H 97 05/08/22 18:32 77 144/90 H 05/08/22 18:30 103 H 95 05/08/22 18:25 79 96 05/08/22 18:24 88 92 Laboratory Results 05/08/22 22:38 05/08/22 01:33 <Vira Nunez MD, FACOG - Last Filed: 05/09/22 07:20> Resident Involvement: Resident Care Provided (Dr. Irish Gutierrez) Care Provided: OB Delivery
[2022-05-09 07:49] LABS: Hematocrit (blood only) 26.4 % (37.0-47.0); Hemoglobin 9.2 g/dl (12.0-16.0); Mean Corpuscular Hemoglobin 29.7 pg (25.0-34.0); Mean Corpuscular Hgb Conc 34.8 g/dL (32.0-36.0); Mean Corpuscular Volume 85.2 fL (80.0-100.0); Mean Platelet Volume 10.2 fL (9.4-12.4); Platelet Count 184 K/uL (130-400); RDW Coefficient of Variation 15.1 % (11.5-14.5); RDW Standard Deviation 46.4 fL (36.4-46.3); White Blood Count 22.14 K/ul (4.8-10.8)
[2022-05-09] MEDS: MONTELUKAST SODIUM 10 MG TABLET PO SCH (08:36)
[2022-05-09] MEDS: DOCUSATE SODIUM 100 MG CAP PO SCH ×2 (08:36→15:44)
[2022-05-09] MEDS: FLUTICASONE PROPIONATE NA SPR 16 GM BTL SCH (08:37)
[2022-05-09] MEDS: PRENATAL VITAMIN 1 TAB PO SCH (08:37)
[2022-05-09] MEDS: CETIRIZINE HCL 10 MG TABLET PO SCH (08:37)
[2022-05-09] MEDS: FAMOTIDINE 40 MG TABLET PO SCH (08:38)
[2022-05-09] MEDS: FLUTICASONE FUROATE 100MCG 14 PUFFS/INHALER INH SCH (08:39)
[2022-05-09 20:00] VITALS: O2SAT 100
[2022-05-09] MEDS ORDERED: bisacodyL 5 MG TABEC PO SCH (20:00)
[2022-05-10] MEDS: IBUPROFEN 600 MG TAB PO PRN ×2 (00:38→07:44)
--- NOTE | 2022-05-10 05:31 | Obstetrical Progress Note ---
Date of Service <Irish Gutierrez MD - Last Filed: 05/10/22 06:27> May 10, 2022 Assessment & Plan <Irish Gutierrez MD - Last Filed: 05/10/22 06:27> (1) Encounter for care and examination after delivery: 36 y/o at 40+wks ega with prom clear fluid and onset on ctx now PPD2. Rh pos, GBS neg, RI. Stable following 800 cc post hemorrhage and s/p 2 units PRBCs. Satisfactory post progress. Encourage ambulation. Needs MMR post p artum. <Juliette Estrada MD - Last Filed: 05/10/22 07:18> (1) Encounter for care and examination after delivery: Plan Resident Physician Supervision Note: I interviewed and examined the patient. Discussed with Dr. Gutierrez and agree with findings and plan as documented in the note. Any exceptions or clarifications are listed here: [ ] Documented By: Juliette Estrada MD, FACOG Subjective <Irish Gutierrez MD - Last Filed: 05/10/22 06:27> Ambulation: ambulating normally Voiding: no voiding problems Passing Gas:: Yes Diet Tolerance:: regular diet Lochia:: Small Feeding Type:: bottle feeding Physical Exam <Irish Gutierrez MD - Last Filed: 05/10/22 06:27> Gen: well appearing female in NAD HEENT: AT NC Resp: no increased work of breathing CV: clinically well perfused : uterus firm non-tender at the level of the umbilicus Psych: appropriate mood and affect Neuro: alert and oriented Results & Data ([facility]) <Irish Gutierrez MD - Last Filed: 05/10/22 06:27> Vital Signs (Past 12 Hours) Vital Signs Temp Pulse Resp BP Pulse Ox O2 Del Method 05/10/22 00:25 36.8 C 79 18 138/84 05/09/22 19:00 36.7 C 92 H 16 135/91 100 Room Air Laboratory Results 05/09/22 07:25 05/08/22 01:33 Resident Activity Tracking <Irish Gutierrez MD - Last Filed: 05/10/22 06:27> Resident Involvement: Resident Care Provided Care Provided: OB Delivery
[2022-05-10 07:12] LABS: Hematocrit (blood only) 25.5 % (37.0-47.0); Hemoglobin 8.7 g/dl (12.0-16.0)
[2022-05-10] MEDS: DOCUSATE SODIUM 100 MG CAP PO SCH (07:44)
[2022-05-10] MEDS: PRENATAL VITAMIN 1 TAB PO SCH (07:44)
[2022-05-10] MEDS: FLUTICASONE PROPIONATE NA SPR 16 GM BTL SCH (07:47)
[2022-05-10] MEDS: MONTELUKAST SODIUM 10 MG TABLET PO SCH (07:47)
[2022-05-10] MEDS: CETIRIZINE HCL 10 MG TABLET PO SCH (07:47)
[2022-05-10] MEDS: FLUTICASONE FUROATE 100MCG 14 PUFFS/INHALER INH SCH (07:49)
[2022-05-10] MEDS: FAMOTIDINE 40 MG TABLET PO SCH (07:51)
[2022-05-10 08:11] VITALS: PULSE 78; TEMP 97.9
[2022-05-10 12:29] VITALS: BP 129/83
== END 2022-05-10 12:25 | disposition home or self-care (01) | DRG 806 ==
LOC: OPB 00:34 → 4S1 00:35 → 4E2 05-09 09:14

== ENCOUNTER 2025-03-02 07:32 | Inpatient (IN) ==
[2025-03-02] MEDS ORDERED: NALBUPHINE HCL INJ 10 MG/ML AMP IV PRN (08:07)
[2025-03-02] MEDS ORDERED: ROPIVACAINE 0.5% PF 5 MG/ML 20 ML VIAL EPI PRN (08:07)
[2025-03-02] MEDS ORDERED: NALOXONE HCL 0.4 MG/1 ML VIAL/CARP IV PRN (08:07)
[2025-03-02] MEDS ORDERED: BUPIVACAINE 0.25% PF 30 ML VIAL EPI PRN (08:07)
[2025-03-02] MEDS ORDERED: LIDOCAINE 2% MPF LOCAL 5 ML VIAL EPI PRN (08:07)
[2025-03-02] MEDS ORDERED: NALOXONE HCL 1 MG in SODIUM CHLORIDE 0.9% 1,000 ML IV PRN (08:07)
[2025-03-02] MEDS ORDERED: diphenhydrAMINE 50 MG/ML VIAL IV PRN (08:07)
[2025-03-02] MEDS ORDERED: SODIUM CHLORIDE 0.9% PF INJ 10 ML VIAL EPI PRN (08:07)
[2025-03-02] MEDS ORDERED: SODIUM CHLORIDE 0.9% 100 ML IV PRN (08:08)
[2025-03-02] MEDS ORDERED: OXYTOCIN 30 UNITS/NSS 30 UNITS/500 ML BAG IV PRN ×2 (08:40→23:16)
[2025-03-02] MEDS ORDERED: LIDOCAINE 1% LOCAL 20 ML VIAL INFIL PRN (08:40)
[2025-03-02] MEDS: LACTATED RINGER'S 1,000 ML IV PRN (08:57)
[2025-03-02 08:59] LABS: Hematocrit (blood only) 35.3 % (37.0-47.0); Hemoglobin 11.8 g/dL (12.0-16.0); Mean Corpuscular Hemoglobin 27.9 pg (25.0-34.0); Mean Corpuscular Volume 83.5 fL (80.0-100.0); Platelet Count 242 K/uL (130-400); RDW Standard Deviation 46.1 fL (36.4-46.3); Red Blood Count 4.23 M/uL (4.20-5.40); White Blood Count 9.42 K/ul (4.8-10.8)
[2025-03-02] MEDS: ONDANSETRON INJ 2 MG/ML 2 ML VIAL IV PRN (09:10)
[2025-03-02] MEDS: OXYTOCIN 30 UNITS/NSS 30 UNITS/500 ML BAG IV PRN (09:16)
[2025-03-02 09:17] LABS: Alanine Aminotransferase 19.0 U/L (7-52); Albumin Globulin Ratio 1.2 (0.9-2); Albumin Level 3.4 gm/dl (3.4-5.0); Alkaline Phosphatase 158.0 U/L (34-104); Anion Gap 8.0 (3-11); Bilirubin,Total 0.4 mg/dl (0.2-1.0); Blood Urea Nitrogen 6.0 mg/dl (6-23); Calcium 8.6 mg/dl (8.6-10.3); Carbon Dioxide 21.0 mmol/L (21-32); Chloride 107.0 mmol/L (98-107); Creatinine Clr Calc Pharmacy 172.0 ml/min; Globulin 2.9 gm/dl (2.5-4.0); Glucose 97.0 mg/dl (70-99(Fasting)); Potassium 3.7 mmol/L (3.5-5.1); Sodium 136.0 mmol/L (136-145); Total Protein 6.3 gm/dl (6.0-8.3)
--- NOTE | 2025-03-02 13:07 | Anesthesiology Consultation ---
Date of Service March 02, 2025 Assessment & Plan (1) Encounter for pre-operative examination: Chart Review Chart Review: Patient NOT seen in Pre Admission Testing and Acceptable Risk for Labor Epidural Consults Requested none History Height/Weight Height: 5 ft 8 in Weight: 106.141 kg Allergies Allergy/AdvReac Type Severity Reaction Status Date / Time Penicillins Allergy Severe Anaphylaxis Verified 03/02/25 08:26 fentanyl Allergy Unknown Hives Verified 03/02/25 08:26 Medications Home Medications Medication Instructions Recorded Confirmed Last Taken Saccharomyces boulardii 250 mg 250 mg PO DAILY 06/16/19 03/02/25 03/01/25 08:00 capsule fluticasone propionate 50 1 sprays intranasal DAILY 06/16/19 03/02/25 03/01/25 08:00 mcg/actuation nasal spray,suspension montelukast 10 mg tablet 10 mg PO QAM 06/16/19 03/02/25 03/01/25 08:00 prenat.vits,filemon,[id number]-rwsaq 1 tab PO DAILY 10/03/21 03/02/25 03/01/25 08:00 albuterol sulfate 0.63 mg/3 mL 0.63 mg inhalation Q4H PRN Wheezing 05/08/22 03/02/25 05/07/22 solution for nebulization cetirizine 10 mg tablet (Zyrtec) 10 mg PO DAILY 05/08/22 03/02/25 03/01/25 08:00 ketotifen fumarate 0.025 % (0.035 1 drp ophthalmic (eye) BID PRN 05/08/22 03/02/25 03/01/25 08:00 %) eye drops Itching budesonide 180 mcg/actuation 1 inh inhalation BID 02/29/24 03/02/25 Unknown breath activated powder inhaler (Pulmicort Flexhaler) colestipol 1 gram tablet 5 g PO UD 02/29/24 03/02/25 03/01/25 17:00 calcium carbonate [Calcium 500] 1 tab PO QAM 03/24/24 03/02/25 03/31/24 06:00 elderberry fruit 1 tab PO DAILY 03/24/24 03/02/25 03/01/25 08:00 ipratropium bromide 21 mcg (0.03 2 spray intranasal BID 03/31/24 03/02/2503/01/25 08:00 %) nasal spray doxylamine succinate [Unisom PO 07/15/24 02/27/25 02/28/25 21:00 (doxylamine)] pyridoxine (vitamin B6) PO 07/15/24 02/27/25 02/28/25 21:00 budesonide-formoterol HFA 160 inhalation 11/21/24 02/27/25 03/01/25 17:00 mcg-4.5 mcg/actuation aerosol inhaler (Breyna) loperamide [Imodium] PO 01/09/25 02/27/25 02/28/25 07:00 pantoprazole 40 mg tablet,delayed 40 mg PO DAILY 03/01/25 03/02/25 03/01/25 08:00 release (Protonix) Active Medications Generic Name Dose Route Start Last Admin Trade Name Freq PRN Reason Stop Dose Admin Lactated Ringer's 1,000 mls @ 125 mls/hr 03/02/25 08:40 03/02/25 12:50 Lr IV 03/04/25 08:39 999 mls/hr .Q8H PRN Infusion L&D Protocol Protocol Oxytocin 30 units in 500 mls @ 13 mls/hr 03/02/25 08:40 03/02/25 12:30 Pitocin 30 Units/Nss IV 03/04/25 08:39 0.78 units/hr .Q24H PRN 13 mls/hr Labor Induction/Augmentation Titration Protocol 0.78 UNITS/HR Ondansetron HCl 4 mg 03/02/25 08:07 03/02/25 09:10 Ondansetron Inj 2 Mg/Ml 2 Ml Vial IV 03/03/25 08:06 4 mg Q6H PRN Administration Nausea &/or Vomiting Past Medical History Medical History Missed ab History of COVID-19 (2022) no hosp; resolved Acid reflux Irritable bowel syndrome Asthma controlled w/ daily inhaler use Past Family History Family History Grandmother (Maternal) Diabetes Mother Asthma Thyroid disease Vulvodynia Denies family history of Ovarian cancer Breast cancer Colorectal cancer Past Surgical History Surgical History History of esophagogastroduodenoscopy (EGD) Status post surgery benign mass removed from ankle S/P LASIK surgery H/O laparoscopy H/O wisdom tooth extraction H/O colonoscopy Social History Smoking Status: Never smoker Do You Dip or Chew Tobacco: No Hx Alcohol Use: No Hx Substance Use: No substance use type: does not use Physical Exam Vital Signs Last Vital Signs Temp 36.4 C L 03/02/25 11:01 Pulse 83 03/02/25 13:05 Resp 18 03/02/25 12:30 BP 132/89 03/02/25 12:00 Pulse Ox 97 03/02/25 13:05 Testing Laboratory Results 03/02/25 08:42 03/02/25 08:42 Blood Type O Positive 03/02/25 08:38 Antibody Screen NEGATIVE 03/02/25 08:38
[2025-03-02] MEDS: SODIUM CHLORIDE 0.9% PF INJ 10 ML VIAL ONE (13:34)
[2025-03-02] MEDS: fentANYL 2 MCG/ML BUPIVacaine 0.125%-NSS 100ML BAG ONE (13:35)
[2025-03-02] MEDS: BUPIVACAINE 0.25% PF 30 ML VIAL ONE (13:35)
[2025-03-02] MEDS: LIDOCAINE 2%/EPINEPHRINE 1:200,000 20 ML PF ONE (13:36)
[2025-03-02] MEDS: ROPIVACAINE PF 0.125% 100 ML BAG EPI PRN (13:39)
[2025-03-02] MEDS: BUPIVACAINE 0.25% PF 30 ML VIAL EPI STA (13:54)
[2025-03-02] MEDS: LIDOCAINE 2%/EPINEPHRINE 1:200,000 20 ML PF EPI STA (13:54)
[2025-03-02] MEDS: SODIUM CHLORIDE 0.9% PF INJ 10 ML VIAL EPI STA (13:55)
--- NOTE | 2025-03-02 14:42 | Labor Progress Brief Note ---
Date of Service March 02, 2025 Subjective Comfortable with epidural. FHT Cat 1 [place] Q 2 SVE 4/80/-3 AROM clear fluid. Assessment & Plan Admission and Anticipated Discharge Date Admission Date: March 02, 2025 Results & Data Vital Signs (Past 12 Hours) Vital Signs Temp Pulse Resp BP Pulse Ox 03/02/25 14:41 77 120/70 03/02/25 14:40 73 100 03/02/25 14:35 107 H 99 03/02/25 14:30 75 98 03/02/25 14:27 84 120/71 03/02/25 14:25 91 H 98 03/02/25 14:20 78 98 03/02/25 14:15 79 99 03/02/25 14:12 82 126/73 03/02/25 14:10 78 99 03/02/25 14:05 92 H 99 03/02/25 14:01 16 03/02/25 14:01 16 03/02/25 14:00 72 99 03/02/25 13:55 94 H 100 03/02/25 13:53 85 129/72 03/02/25 13:52 103 H 118/71 03/02/25 13:50 85 99 03/02/25 13:46 104 H 146/77 H 03/02/25 13:45 93 H 127/74 97 03/02/25 13:44 111 H 120/76 03/02/25 13:42 85 120/71 03/02/25 13:40 104 H 127/81 100 03/02/25 13:38 89 16 127/77 03/02/25 13:36 86 128/78 03/02/25 13:35 77 98 03/02/25 13:34 82 132/77 03/02/25 13:33 78 139/81 03/02/25 13:30 100 H 99 03/02/25 13:28 123 H 93 03/02/25 13:25 119 H 99 03/02/25 13:20 100 03/02/25 13:20 103 H 03/02/25 13:20 103 H 90 03/02/25 13:15 89 100 03/02/25 13:10 77 99 03/02/25 13:05 83 97 03/02/25 12:59 16 03/02/25 12:59 16 03/02/25 12:30 18 03/02/25 12:30 18 03/02/25 12:00 99 H 20 132/89 03/02/25 11:01 36.4 C L 88 18 135/84 03/02/25 09:59 94 H 18 129/76 03/02/25 07:43 36.7 C 88 20 136/95 03/02/25 07:41 36.7 C 20 Coding Level of Care Code None
[2025-03-02] MEDS ORDERED: Nursing to Pharmacy Communication SCH (17:45)
[2025-03-02] MEDS: PROMETHAZINE 6.25 MG/50.25 ML BAG IV PRN (19:20)
--- NOTE | 2025-03-02 20:14 | Labor Progress Brief Note ---
Date of Service March 02, 2025 Subjective Comfortable with redose. FHT Cat 1 [place] Q 2 SVE 5-6/80/-2, anterior Will continue pitocin, position changes. Assessment & Plan Admission and Anticipated Discharge Date Admission Date: March 02, 2025 Results & Data Vital Signs (Past 12 Hours) Vital Signs Temp Pulse Resp BP Pulse Ox 03/02/25 20:11 82 133/67 03/02/25 20:10 85 100 03/02/25 20:05 102 H 99 03/02/25 20:01 123 H 94 03/02/25 20:00 120 H 94 03/02/25 19:56 107 H 123/66 03/02/25 19:55 86 98 03/02/25 19:50 87 96 03/02/25 19:46 83 93 03/02/25 19:45 149 H 100 03/02/25 19:40 140 H 103/61 100 03/02/25 19:35 137 H 98 03/02/25 19:30 81 93 03/02/25 19:25 110 H 105/65 100 03/02/25 19:21 73 132/66 03/02/25 19:20 75 100 03/02/25 19:15 128 H 100 03/02/25 19:14 99 H 116/68 03/02/25 19:10 100 03/02/25 19:10 85 03/02/25 19:10 86 122/70 03/02/25 19:05 126 H 117/60 100 03/02/25 19:04 18 03/02/25 19:04 36.8 C 18 03/02/25 19:00 75 100 03/02/25 18:59 74 119/66 03/02/25 18:58 78 102/60 03/02/25 18:55 100 03/02/25 18:55 126 H 03/02/25 18:55 129 H 82/48 L 03/02/25 18:50 85 88/54 L 100 03/02/25 18:47 92 H 88 L 03/02/25 18:46 85 119/71 03/02/25 18:45 94 H 100 03/02/25 18:40 97 03/02/25 18:40 127 H 03/02/25 18:40 111 H 97/56 L 03/02/25 18:35 123 H 98 03/02/25 18:34 99 H 118/69 03/02/25 18:30 104 H 99 03/02/25 18:29 100 H 122/67 03/02/25 18:27 93 H 133/78 03/02/25 18:25 104 H 128/79 100 03/02/25 18:23 36.8 C 105 H 20 121/72 03/02/25 18:22 122 H 113/66 03/02/25 18:20 89 100 03/02/25 18:19 97 H 87/54 L 03/02/25 18:17 112 H 101/64 03/02/25 18:16 104 H 94/50 L 03/02/25 18:15 106 H 98 03/02/25 18:13 86 132/79 03/02/25 18:11 83 132/79 03/02/25 18:10 99 H 99 03/02/25 18:09 83 136/84 03/02/25 18:07 86 143/84 H 03/02/25 18:05 96 H 99 03/02/25 18:04 112 H 92 03/02/25 18:00 88 100 03/02/25 17:58 90 143/77 H 03/02/25 17:55 89 99 03/02/25 17:53 20 03/02/25 17:53 36.8 C 20 03/02/25 17:50 90 100 03/02/25 17:45 87 98 03/02/25 17:43 85 134/79 03/02/25 17:40 85 99 03/02/25 17:35 100 03/02/25 17:35 88 03/02/25 17:35 99 H 92 03/02/25 17:30 89 100 03/02/25 17:26 90 18 133/78 03/02/25 17:25 76 99 03/02/25 17:20 91 H 99 03/02/25 17:15 92 H 98 03/02/25 17:12 81 135/77 03/02/25 17:10 89 99 03/02/25 17:05 87 100 03/02/25 17:00 86 100 03/02/25 16:57 81 133/75 03/02/25 16:55 94 H 100 03/02/25 16:50 85 99 03/02/25 16:45 89 99 03/02/25 16:41 83 124/71 03/02/25 16:40 78 98 03/02/25 16:35 91 H 99 03/02/25 16:30 90 98 03/02/25 16:26 36.6 C 87 16 121/66 03/02/25 16:25 79 96 03/02/25 16:20 75 97 03/02/25 16:19 117 H 92 03/02/25 16:15 68 99 03/02/25 16:13 115 H 91 03/02/25 16:12 82 119/64 03/02/25 16:10 96 H 98 03/02/25 16:07 76 94 03/02/25 16:05 107 H 94 03/02/25 16:00 82 95 03/02/25 15:57 123 H 18 104/61 03/02/25 15:55 69 98 03/02/25 15:50 103 H 95 03/02/25 15:45 73 99 03/02/25 15:42 77 120/64 03/02/25 15:40 93 H 98 03/02/25 15:35 103 H 97 03/02/25 15:30 80 98 03/02/25 15:26 126 H 115/68 03/02/25 15:25 98 H 97 03/02/25 15:20 98 H 99 03/02/25 15:15 89 98 03/02/25 15:11 91 H 03/02/25 15:11 87 120/70 92 03/02/25 15:10 88 96 03/02/25 15:05 73 100 03/02/25 15:00 101 H 99 03/02/25 14:57 85 18 117/68 03/02/25 14:55 77 99 03/02/25 14:50 88 100 03/02/25 14:45 81 98 03/02/25 14:41 36.6 C 77 16 120/70 03/02/25 14:40 73 100 03/02/25 14:35 107 H 99 03/02/25 14:30 75 98 03/02/25 14:27 84 120/71 03/02/25 14:25 91 H 98 03/02/25 14:20 78 98 03/02/25 14:15 79 99 03/02/25 14:12 82 126/73 03/02/25 14:10 78 99 03/02/25 14:05 92 H 99 03/02/25 14:01 16 03/02/25 14:01 16 03/02/25 14:00 72 99 03/02/25 13:55 94 H 100 03/02/25 13:53 85 129/72 03/02/25 13:52 103 H 118/71 03/02/25 13:50 85 99 03/02/25 13:46 104 H 146/77 H 03/02/25 13:45 93 H 127/74 97 03/02/25 13:44 111 H 120/76 03/02/25 13:42 85 120/71 03/02/25 13:40 104 H 127/81 100 03/02/25 13:38 89 16 127/77 03/02/25 13:36 86 128/78 03/02/25 13:35 77 98 03/02/25 13:34 82 132/77 03/02/25 13:33 78 139/81 03/02/25 13:30 100 H 99 03/02/25 13:28 123 H 93 03/02/25 13:25 119 H 99 03/02/25 13:20 100 03/02/25 13:20 103 H 03/02/25 13:20 103 H 90 03/02/25 13:15 89 100 03/02/25 13:10 77 99 03/02/25 13:05 83 97 03/02/25 12:59 16 03/02/25 12:59 16 03/02/25 12:30 18 03/02/25 12:30 18 03/02/25 12:00 99 H 20 132/89 03/02/25 11:01 36.4 C L 88 18 135/84 03/02/25 09:59 94 H 18 129/76 Coding Level of Care Code None
--- NOTE | 2025-03-02 20:41 | Anesthesia Procedure Note ---
Date of Service March 02, 2025 Anesthesia Epidural Re-Dose Vital Signs Temp Pulse Resp BP Pulse Ox 36.8 C 94 H 18 137/70 98 03/02/25 19:04 03/02/25 20:35 03/02/25 19:04 03/02/25 20:25 03/02/25 20:35 Notes Pain Intensity: 0 Dilatation (cm): 5.5 Effacement (%): 80 Called by nursing to evaluate epidural as the patient is having increased pain. The epidural was re-dosed with the following medications (all medications via epidural route) after negative aspiration of the epidural catheter for CSF/HEME. 5ml of 2% Lidocaine mixed with 5ml of 0.5% Ropi. Patient mildly hypotensive and required dose of ephedrine with excellent results. Pain much improved after redose. After Epidural Re-Dose Mental Status: alert / awake / arousable Pain: improving with treatment Airway Patency, RR, SpO2: stable & adequate BP & HR: stable & adequate
[2025-03-02] MEDS ORDERED: BUPIVACAINE 0.25% PF 30 ML VIAL ONE (21:10)
[2025-03-02] MEDS ORDERED: LIDOCAINE 2%/EPINEPHRINE 1:200,000 20 ML PF ONE (21:10)
[2025-03-02] MEDS ORDERED: ROPIVACAINE 0.5% 5 MG/ML 30 ML VIAL ONE (21:10)
--- NOTE | 2025-03-02 21:31 | Anesthesia Procedure Note ---
Date of Service March 02, 2025 Anesthesia Epidural Re-Dose Vital Signs Temp Pulse Resp BP Pulse Ox 36.7 C 98 H 20 135/78 97 03/02/25 21:00 03/02/25 21:03/02/25 21:00 03/02/25 21:03/02/25 21: Notes Pain Intensity: 0 Dilatation (cm): 5.5 Effacement (%): 80 Called by nursing to evaluate epidural as the patient is having increased pain. The epidural was re-dosed with the following medications (all medications via epidural route) after negative aspiration of the epidural catheter for CSF/HEME. 8ml of 0.25% bupivacaine After Epidural Re-Dose Mental Status: alert / awake / arousable Pain: improving with treatment Airway Patency, RR, SpO2: stable & adequate BP & HR: stable & adequate Additional Notes: earlier redose was at 1815. pain relief lasted several hours. called by nursing again at 2100 as pt with increasing pain. decided to do 0.25% bupivicaine as lido/ropi mix caused hypotension and nausea.
--- NOTE | 2025-03-02 23:05 | Delivery Summary ---
Vaginal Delivery Summary Date of Service March 02, 2025 Vaginal Delivery Summary and 1st Degree LAC Vaginal Delivery Summary: Pre-delivery diagnoses: 39yo @ 39 3/7, IOL, AMA, asthma Post-delivery diagnoses: same Procedure: spontaneous vaginal delivery Surgeon: Azra Martin DO Complications: none Findings: Viable male . Apgars: 8/9 . Weight pending, please see nursery records Estimated QBL: 182cc Description of delivery: The patient progressed to complete with epidural anesthesia. She then began to push. She spontaneously vaginally delivered a viable from the cephalic presentation. The head delivered in SILVIA position. The anterior shoulder delivered, followed by the posterior shoulder, followed by the body. No nuchal cord. The baby was placed on mother's abdomen and a spontaneous cry was heard. Delayed cord clamping was employed, and the cord was doubly clamped and cut. Cord blood was obtained. The placenta was delivered spontaneously intact with a 3-vessel cord, marginal insertion of cord. The uterus and vagina were swept of clots and debris. Bladder drained with straight cath. IV pitocin was given. The uterus became firm. The cervix, vagina, and perineum were inspected. 1st degree perineal laceration noted, repaired with 3-0 Vicryl in standard fashion. Excellent hemostasis was observed, 1000mcg cytotec given rectally d/t history of hemorrhage. The mother and baby are recovering in stable and good condition in the room. Sponge, needle and instrument counts were correct x 2. Azra Martin DO [facility] Vaginal Delivery Charge Vaginal Delivery Codes: 94206 global code for the antepartum, delivery, and post- Delivery Type Details: and 1st Degree LAC
[2025-03-02] MEDS ORDERED: HYDROCORTISONE ACETATE 25 MG SUPP PR PRN (23:16)
[2025-03-02] MEDS: miSOPROStol 200 MCG TAB PR ONE (23:27)
[2025-03-02] MEDS: IBUPROFEN 600 MG TAB PO PRN (23:33)
[2025-03-02] MEDS ORDERED: ALBUTEROL 0.083% NEBU SOLN 3 ML VIAL INH PRN (23:36)
[2025-03-03] MEDS: ACETAMINOPHEN 325 MG TAB PO PRN (01:12)
[2025-03-03] MEDS: BENZOCAINE 20% SPRY 85 APPLN/85 GM CAN EXT PRN (01:13)
[2025-03-03] MEDS: DIPHTHER/TETAN/PERTUS Vaccine (Tdap, Adol/Adult) 0.5mL IM ONE (01:28)
[2025-03-03 06:26] LABS: Hematocrit (blood only) 31.2 % (37.0-47.0); Hemoglobin 10.5 g/dL (12.0-16.0)
--- NOTE | 2025-03-03 06:47 | Obstetrical Progress Note ---
Date of Service March 03, 2025 Assessment & Plan (1) care following vaginal delivery: (2) Obesity affecting , antepartum: (3) Supervision of elderly multigravida: Plan 39 yo post- day 1 s/p . Fells well today. Vital signs stable Continue post- care Encourage ambulation and Pain controlled with ibuprofen Hgb stable Discharge home today, follow up with Dr. Martin in 6 weeks. Admission and Anticipated Discharge Date Admission Date: March 02, 2025 Subjective 39 yo post- day 1 s/p . Ambulation: ambulating normally Voiding: no voiding problems Passing Gas:: Yes Diet Tolerance:: regular diet Lochia:: Small Feeding Type:: bottle feeding Current Pain Level:Slight pain Resting comfortably this AM in NAD. Denies KELLY, CP, SOB, N/V/D, LE pain/swelling. Review of Systems Review of Systems: As per HPI. Physical Exam Physical Exam: General: patient resting comfortably, NAD, non-toxic in appearance, AA&O x 4, answers questions appropriately. Skin: warm, dry, intact HEENT: NC/AT, anicteric sclera, conjunctiva without injection, moist mucus membranes. Heart: +S1/S2, regular, no m/r/g Lungs: equal air entry bilaterally, no rales/rhonchi/wheezes Abd: +BS, soft, NT/ND, uterine fundus firm at umbilicus. Ext: warm, no clubbing/cyanosis or edema, Samuel's neg. Results & Data Vital Signs (Past 12 Hours) Vital Signs Temp Pulse Pulse Resp BP BP Pulse Ox 03/03/25 03:50 36.8 C 93 H 16 139/88 98 03/03/25 01:00 36.8 C 104 H 18 138/81 03/03/25 01:00 104 H 138/81 03/03/25 00:49 95 H 144/84 H 03/03/25 00:34 93 H 142/83 H 03/03/25 00:19 106 H 143/85 H 03/03/25 00:04 101 H 151/91 H 03/02/25 23:49 98 H 150/84 H 03/02/25 23:35 102 H 152/86 H 03/02/25 23:19 88 143/73 H 03/02/25 23:04 98 H 130/61 03/02/25 22:51 111 H 100 03/02/25 22:49 111 H 129/73 03/02/25 22:46 119 H 97 03/02/25 22:41 139 H 98 03/02/25 22:36 147 H 129/66 99 03/02/25 22:33 134 H 89 L 03/02/25 22:31 144 H 99 03/02/25 22:26 141 H 99 03/02/25 22:21 146 H 99 03/02/25 22:19 139 H 116/75 03/02/25 22:15 146 H 100 03/02/25 22:11 132 H 88 L 03/02/25 22:10 118 H 96 03/02/25 22:05 96 03/02/25 22:05 113 H 03/02/25 22:05 96 H 145/79 H 03/02/25 22:04 119 H 92 03/02/25 22:00 94 H 18 98 03/02/25 21:55 99 H 99 03/02/25 21:50 95 H 97 03/02/25 21:45 99 H 132/82 100 03/02/25 21:40 121 H 122/80 100 03/02/25 21:35 99 03/02/25 21:35 102 H 03/02/25 21:35 100 H 138/77 03/02/25 21:34 115 H 90 03/02/25 21:30 97 03/02/25 21:30 101 H 03/02/25 21:30 95 H 136/76 03/02/25 21:26 98 H 135/78 03/02/25 21:25 97 H 97 03/02/25 21:23 92 H 132/73 03/02/25 21:20 95 H 138/73 98 03/02/25 21:15 90 146/76 H 100 03/02/25 21:10 104 H 127/74 98 03/02/25 21:05 115 H 98 03/02/25 21:00 36.7 C 128 H 20 99 03/02/25 20:56 102 H 138/75 03/02/25 20:55 98 H 99 03/02/25 20:50 97 H 97 03/02/25 20:45 95 H 96 03/02/25 20:41 87 125/76 03/02/25 20:40 90 97 03/02/25 20:35 94 H 98 03/02/25 20:30 96 H 99 03/02/25 20:25 99 03/02/25 20:25 98 H 03/02/25 20:25 92 H 137/70 03/02/25 20:20 92 H 99 03/02/25 20:15 102 H 100 03/02/25 20:11 82 133/67 03/02/25 20:10 85 100 03/02/25 20:05 102 H 99 03/02/25 20:01 123 H 94 03/02/25 20:00 120 H 94 03/02/25 19:56 107 H 123/66 03/02/25 19:55 86 98 03/02/25 19:50 87 96 03/02/25 19:46 83 93 03/02/25 19:45 149 H 100 03/02/25 19:40 140 H 103/61 100 03/02/25 19:35 137 H 98 03/02/25 19:30 81 93 03/02/25 19:25 110 H 105/65 100 03/02/25 19:21 73 132/66 03/02/25 19:20 75 100 03/02/25 19:15 128 H 100 03/02/25 19:14 99 H 116/68 03/02/25 19:10 100 03/02/25 19:10 85 03/02/25 19:10 86 122/70 03/02/25 19:05 126 H 117/60 100 03/02/25 19:04 18 03/02/25 19:04 36.8 C 18 03/02/25 19:00 75 100 03/02/25 18:59 74 119/66 03/02/25 18:58 78 102/60 03/02/25 18:55 100 03/02/25 18:55 126 H 03/02/25 18:55 129 H 82/48 L 03/02/25 18:50 85 88/54 L 100 03/02/25 18:47 92 H 88 L 03/02/25 18:46 85 119/71 03/02/25 18:45 94 H 100 O2 Del Method 03/03/25 03:50 Room Air 03/03/25 01:00 Room Air 03/03/25 01:00 03/03/25 00:49 03/03/25 00:34 03/03/25 00:19 03/03/25 00:04 03/02/25 23:49 03/02/25 23:35 03/02/25 23:19 03/02/25 23:04 03/02/25 22:51 03/02/25 22:49 03/02/25 22:46 03/02/25 22:41 03/02/25 22:36 03/02/25 22:33 03/02/25 22:31 03/02/25 22:26 03/02/25 22:21 03/02/25 22:19 03/02/25 22:15 03/02/25 22:11 03/02/25 22:10 03/02/25 22:05 03/02/25 22:05 03/02/25 22:05 03/02/25 22:04 03/02/25 22:00 03/02/25 21:55 03/02/25 21:50 03/02/25 21:45 03/02/25 21:40 03/02/25 21:35 03/02/25 21:35 03/02/25 21:35 03/02/25 21:34 03/02/25 21:30 03/02/25 21:30 03/02/25 21:30 03/02/25 21:26 03/02/25 21:25 03/02/25 21:23 03/02/25 21:20 03/02/25 21:15 03/02/25 21:10 03/02/25 21:05 03/02/25 21:00 03/02/25 20:56 03/02/25 20:55 03/02/25 20:50 03/02/25 20:45 03/02/25 20:41 03/02/25 20:40 03/02/25 20:35 03/02/25 20:30 03/02/25 20:25 03/02/25 20:25 03/02/25 20:25 03/02/25 20:20 03/02/25 20:15 03/02/25 20:11 03/02/25 20:10 03/02/25 20:05 03/02/25 20:01 03/02/25 20:00 03/02/25 19:56 03/02/25 19:55 03/02/25 19:50 03/02/25 19:46 03/02/25 19:45 03/02/25 19:40 03/02/25 19:35 03/02/25 19:30 03/02/25 19:25 03/02/25 19:21 03/02/25 19:20 03/02/25 19:15 03/02/25 19:14 03/02/25 19:10 03/02/25 19:10 03/02/25 19:10 03/02/25 19:05 03/02/25 19:04 03/02/25 19:04 03/02/25 19:00 03/02/25 18:59 03/02/25 18:58 03/02/25 18:55 03/02/25 18:55 03/02/25 18:55 03/02/25 18:50 03/02/25 18:47 03/02/25 18:46 03/02/25 18:45 Resident Activity Tracking Resident Involvement: Resident Care Provided Care Provided: Adult Hospital Medicine Resident Supervision Co-Signing Physician Notes Resident Physician Supervision Note: I interviewed and examined the patient. Discussed with Dr. Sandy and agree with findings and plan as documented in the note. Any exceptions or clarifications are listed here: PPD#1 doing well, no concerns. Initially wanted to go home today, but given she would need to stay until 24h after delivery, she elected to stay until tomorrow AM. Documented By: Azra Martin DO
--- NOTE | 2025-03-03 07:25 | Anesthesia Procedure Note ---
Date of Service March 03, 2025 Anesthesia Post Epidural Note Vital Signs Vital Signs: Temp Pulse Resp BP Pulse Ox O2 Del Method 36.8 C 93 H 16 139/88 98 Room Air 03/03/25 03:50 03/03/25 03:50 03/03/25 03:50 03/03/25 03:50 03/03/25 03:50 03/03/25 03:50 Pain Intensity Abdomen: Pain Intensity: 3 Notes Mental Status: alert / awake / arousable and participated in evaluation Nausea / Vomiting: adequately controlled Pain: adequately controlled Airway Patency, RR, SpO2: stable & adequate BP & HR: stable & adequate Hydration State: stable & adequate Neuraxial Anesthesia: was administered and sensory block is resolving Anesthetic Complications: no major complications apparent Epidural: Removed without complications and With tip intact
[2025-03-03] MEDS: DOCUSATE SODIUM 100 MG CAP PO SCH (07:51)
[2025-03-03] MEDS: PRENATAL VITAMIN 1 TAB PO SCH (07:51)
[2025-03-03] MEDS: CETIRIZINE HCL 10 MG TABLET PO SCH (07:52)
[2025-03-03] MEDS: FLUTICASONE PROPIONATE NA SPR 16 GM BTL SCH (07:53)
[2025-03-03] MEDS: IPRATROPIUM BROMIDE NASAL SPRAY 0.03% 30 ML SCH (07:53)
[2025-03-03] MEDS: MONTELUKAST SODIUM 10 MG TABLET PO SCH (07:54)
[2025-03-03] MEDS: FLUTICASONE FUROATE 100MCG 14 PUFFS/INHALER INH SCH (07:54)
[2025-03-03 20:06] VITALS: RESP 18
--- NOTE | 2025-03-04 06:26 | Obstetrical Progress Note ---
Date of Service March 04, 2025 Assessment & Plan (1) care following vaginal delivery: (2) Obesity affecting , antepartum: (3) Supervision of elderly multigravida: Plan 39 yo post- day 2 s/p . Fells well today. Vital signs stable Continue post- care Encourage ambulation and Pain controlled with ibuprofen Hgb stable Discharge home today, follow up with Dr. Martin in 6 weeks. Admission and Anticipated Discharge Date Admission Date: March 02, 2025 Supervising Physician Co-Signing Physician Notes Resident Physician Supervision Note: I interviewed and examined the patient. Discussed with Dr. Sandy and agree with findings and plan as documented in the note. Any exceptions or clarifications are listed here: stable doing well. eating, voiding, ambulating, bleeding decreased. bottle feeding. exam cor rrr, lungs ctab, abd soft ff 2 down nt, ext nt calves. ppd#2 s/p ready for dc home, instructions reviewed. f/u 6 wk pp. bottle, rhpos, ri. Documented By: Hetal Warner MD, FACOG Subjective 39 yo post- day 2 s/p . Ambulation: ambulating normally Voiding: no voiding problems Passing Gas:: Yes Diet Tolerance:: regular diet Lochia:: Small Feeding Type:: bottle feeding Current Pain Level:Slight pain Resting comfortably this AM in NAD. Denies KELLY, CP, SOB, N/V/D, LE pain/swelling. Review of Systems Review of Systems: As per HPI. Physical Exam Physical Exam: General: patient resting comfortably, NAD, non-toxic in appearance, AA&O x 4, answers questions appropriately. Skin: warm, dry, intact HEENT: NC/AT, anicteric sclera, conjunctiva without injection, moist mucus membranes. Heart: +S1/S2, regular, no m/r/g Lungs: equal air entry bilaterally, no rales/rhonchi/wheezes Abd: +BS, soft, NT/ND, uterine fundus firm at umbilicus. Ext: warm, no clubbing/cyanosis or edema, Samuel's neg. Results & Data Vital Signs (Past 12 Hours) Vital Signs Temp Pulse Resp BP Pulse Ox O2 Del Method 03/03/25 23:02 36.8 C 82 18 133/83 98 Room Air 12/30/25 19:42 36.7 C 94 H 18 147/92 H 99 Room Air Resident Activity Tracking Resident Involvement: Resident Care Provided Care Provided: Adult Hospital Medicine
[2025-03-04 07:26] VITALS: BP 128/79; PULSE 75; TEMP 98.1; O2SAT 100
== END 2025-03-04 11:15 | disposition home or self-care (01) | DRG 807 ==
LOC: 4S1 07:32 → 4E2 03-03 01:19